=== PATIENT | male | born 1940 | race Caucasian/White ===

== ENCOUNTER → 2023-09-27 | Outpatient (CLI) | payer MEDICARE ==
[2023-09-27 10:08] LABS: BASOPHILS % 0.6 % (0.0-2.0); EOSINOPHILS % 0.3 % (0.0-5.0); HEMATOCRIT. 32.5 % (42.0-52.0); HEMOGLOBIN. 10.6 g/dL (14.0-18.0); LYMPHOCYTES % 16.3 % (20.0-50.0); MEAN CORPUSCULAR HEMOGLOBIN 30.5 pg (28.0-32.0); MEAN CORPUSCULAR HGB CONC 32.7 g/dL (31.0-37.0); MEAN CORPUSCULAR VOLUME 93.3 fL (80.0-94.0); MEAN PLATELET VOLUME 7.9 fl (7.4-10.4); MONOCYTES % 5.9 % (2.0-8.0); NEUTROPHILS % 76.9 % (40.0-76.0); PLATELET 129 x1000/uL (130-400); RED BLOOD CELL COUNT 3.48 mill/uL (4.7-6.1); RED CELL DISTRIBUTION WIDTH 21.3 % (11.6-14.6); WHITE BLOOD COUNT 6.3 x1000/uL (4.5-11.0)
== END | disposition home or self-care (01) ==
LOC: LAB 09:26
PROVIDERS: ATTEND Internal Medicine
DX: D64.9 Anemia, unspecified (principal)
CPT/HCPCS: 36415; 85025